=== PATIENT | male | born 1975 | race Caucasian/White ===

== ENCOUNTER → 2017-06-03 | Outpatient (CLI) | payer BC ==
[~2017-06-03] MED LIST: IBUP-1050 PO; OPTIRAY 320 IV PRN
--- NOTE | 2017-06-03 11:41 | DIAGNOSTIC IMAGING REPORT ---
ABD/PELVIS IV AND ORAL CONT CLINICAL HISTORY: 41 years-old Male presenting with NAUSEA, left lower quadrant pain. TECHNIQUE: Multidetector CT of the abdomen and pelvis was performed after the administration of intravenous contrast. IV contrast: 94 mL of Optiray 320. A dose lowering technique was used consistent with the principles of ALARA (as low as reasonably achievable). COMPARISON: None. CT DOSE (mGy.cm): The estimated cumulative dose is 821.73 mGy.cm. FINDINGS: [employer] topogram: Posterior lumbar fusion hardware noted. Lung bases: Lung bases clear. Normal heart size. No pericardial or pleural effusion. Liver: Normal morphology. No liver lesion. Patent hepatic vasculature. Biliary: No intrahepatic or extrahepatic biliary ductal dilatation. Normal gallbladder. Pancreas: Mild parenchymal atrophy. Spleen: Normal. Adrenal glands: Normal. 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 No nephrolithiasis. No hydronephrosis. Ureters have orthotopic insertions are nondilated. Bladder: Normal. Incidental note made of a patent urachal sinus connecting to a urachal cyst, which measures 9 mm in diameter. No calculi within the cyst. Pelvic organs: Prostate and seminal vesicles normal. Bowel: Normal appendix. No bowel obstruction. Peritoneal cavity: No free fluid or intraperitoneal gas. Lymph nodes: Multiple subcentimeter prominent lymph nodes in the small bowel mesentery with associated mild fat infiltration. No pathologically enlarged lymph nodes by CT size criteria. Vasculature: Aorta and IVC patent and normal in caliber. Abdominal wall: Diastasis of the rectus abdominis. Small fat-containing umbilical hernia. Musculoskeletal: Posterior lumbar fusion hardware at L5-S1 with laminectomies and interbody spacer noted. No hardware complication. IMPRESSION: 1. 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 No nephrolithiasis or hydronephrosis. 2. 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 This is variably symptomatic. 3. Incidental note made of patent urachal sinus with urachal cyst. Electronically signed by: Dav Diaz M.D. 06/03/2017 11:39 AM Dictated Date/Time: 06/03/2017 11:29 AM
== END | disposition home or self-care (01) ==
LOC: C.CTS 09:16
PROVIDERS: ATTEND Physician Assistant
DX: R10.32 Left lower quadrant pain (principal); R50.9 Fever, unspecified; R11.0 Nausea; Q63.1 Lobulated, fused and horseshoe kidney; Q64.4 Malformation of urachus